=== PATIENT | male | born 1965 | race Two or more races ===

== ENCOUNTER 2018-03-31 18:59 | Emergency (ER) | payer OTHER ==
--- NOTE | 2018-03-31 19:15 | EDPHY ---
H & P Stated Complaint: R 3rd finger laceration on rock today. Time Seen by Provider: 03/31/18 19:01 HPI/ROS: 53 yo M presents with his family for complaint of laceration to right middle finger about 2 hours ago, not sure of exact injury. Review of systems As per HPI General no fever no chills no weakness HEENT no eye pain no eye discharge. No eye redness, no sore throat Respiratory no cough, no shortness of breath Cardiac no chest pain, no peripheral edema GI no abdominal pain, no diarrhea, no constipation, no nausea, no vomiting no flank pain, no hematuria, no dysuria Musculoskeletal no myalgias, no joint pain Heme no easy bruising, no easy bleeding Endo no polyuria, no polydipsia Skin no rashes, no pruritus Neuro no syncope, no dizziness, no headaches Pt drinks alcohol daily, heavy alcohol use Source: Patient, Family Exam Limitations: No limitations, Intoxication - Personal History Current Tetanus Diphtheria and Acellular Pertussis (TDAP): Yes Tetanus Vaccine Date: within 10 years - Medical/Surgical History Hx Asthma: No Hx Chronic Respiratory Disease: No Hx Diabetes: No Hx Cardiac Disease: No Hx Renal Disease: No Hx Cirrhosis: No Hx Alcoholism: Yes Hx HIV/AIDS: No Hx Splenectomy or Spleen Trauma: No Other PMH: ETOH - Family History Significant Family History: No pertinent family hx - Social History Smoking Status: Current every day smoker Alcohol Use: Heavy Drug Use: None - Physical Exam Exam: 53-year-old male alert, smells of alcohol, no acute distress Afebrile Atraumatic normocephalic Neck no JVD Lungs clear to auscultation, no respiratory distress Heart regular rate and rhythm Extremities no cyanosis clubbing edema Right hand-right middle finger Good capillary refill All digits with full range of motion Right middle finger with 2 cm laceration to volar and lateral aspect extending thru part of the nail Additional 1.5 cm laceration on finger pad same finger No evidence of foreign body No bony exposure, no tendon exposure Constitutional: Initial Vital Signs Temperature (C) 36.9 C 03/31/18 19:03 Heart Rate 108 H 03/31/18 19:03 Respiratory Rate 16 03/31/18 19:03 Blood Pressure 140/102 H 03/31/18 19:03 O2 Sat (%) 93 03/31/18 19:03 O2 Delivery Mode Room Air Allergies/Adverse Reactions: No Known Allergies Allergy (Verified 03/31/18 19:03) Home Medications: Medication Instructions Recorded NK [No Known Home Meds] 03/31/18 Medical Decision Making - Diagnostics Imaging Results: Imaging Impressions Finger X-Ray 03/31/18 19:14 Impression: Intact tuft. Procedures: Procedure note-laceration Bupivacaine 0.5% without epinephrine combined with lidocaine 1% without epinephrine for a digital block to the right middle finger The wound was irrigated with copious amounts of saline. 12 simple interrupted sutures were placed. 5-0 Ethilon was used. Patient tolerated procedure well. ED Course/Re-evaluation: Patient seen and evaluated for right middle finger laceration X-ray negative for tuft fracture The sutured repair, see procedure note Plan Return in 12 days for suture removal Differential Diagnosis: Differential diagnosis considered but not limited to: Finger laceration, finger laceration with tuft fracture Departure - Departure Disposition: Home, Routine, Self-Care Clinical Impression: Laceration of finger, right, complicated Condition: Good Instructions: Care For Your Stitches (DC), Laceration (ED) Additional Instructions: Sutures out in 12 days. Referrals: JORI LOWE [Other] - As per Instructions Print Language: Bulgarian
[2018-03-31 21:03] VITALS: BP 132/99
== END 2018-03-31 21:03 | disposition home or self-care (01) ==
LOC: CED 18:59
PROC: 0HQFXZZ Repair Right Hand Skin, External Approach (ICD-10-PCS; principal; 2018-03-31)
DX: S61.212A Laceration without foreign body of right middle finger without damage to nail, initial encounter (principal); X58.XXXA Exposure to other specified factors, initial encounter; F17.200 Nicotine dependence, unspecified, uncomplicated
CPT/HCPCS: 73140-PO